=== PATIENT | male | born 1975 | race Two or more races ===

== ENCOUNTER 2022-07-16 22:45 | Emergency (ER) | payer OTHER ==
[~2022-07-16] VITALS: Ht 172.7 cm; Wt 102.0 kg
[2022-07-16] MEDS ORDERED: OMEP20 PO (23:15)
[2022-07-16] MEDS ORDERED: PB/HYOSCY/ATR/SCOP/LIDO/MAALOX 55 ML BOTTLE PO ONE (23:30)
[2022-07-16 23:44] LABS: BASOPHILS % (AUTO) 0.9 % (0.0-2.0); EOSINOPHILS % (AUTO) 4.7 % (1.0-6.0); HEMOGLOBIN 12.8 g/dL (13.5-17.5); LYMPHOCYTES # (AUTO) 2.1 K/uL (1.0-4.8); LYMPHOCYTES % (AUTO) 29.5 % (22.0-44.0); MEAN CORPUSCULAR HEMOGLOBIN 24.7 pg (26.0-34.0); MEAN CORPUSCULAR HGB CONC 32.7 G/dL (31.0-37.0); MEAN CORPUSCULAR VOLUME 76 fL (80-100); MONOCYTES # (AUTO) 0.5 K/uL (0.1-1.0); NEUTROPHILS # (AUTO) 4.1 K/uL (1.8-7.7); NEUTROPHILS % (AUTO) 57.9 % (40.0-70.0); PLATELET COUNT (AUTO) 174 K/uL (150-450); RED BLOOD CELL COUNT(AUTO) 5.17 MIL/uL (4.50-5.90); RED CELL DISTRIBUTION WIDTH 15.1 % (11.5-14.5)
[2022-07-16 23:55] LABS: ANION GAP 8 mmol/L (8-16); CALCIUM, TOTAL 8.9 mg/dL (8.8-10.5); CARBON DIOXIDE 27 mmol/L (22-29); CHLORIDE 103 mmol/L (98-107); CREATININE 0.96 mg/dL (0.60-1.30); GLOMERULAR FILTR. RATE CALC > 60 mL/min (>60); GLUCOSE,RANDOM 110 mg/dL (70-110); POTASSIUM 4.2 mmol/L (3.5-5.1); SODIUM SERUM 138 mmol/L (136-145)
[2022-07-17 00:04] LABS: B-TYPE NATRIURETIC PEPTIDE 28 pg/mL (0-100)
[2022-07-17 00:19] LABS: ALANINE AMINOTRANSFERASE 56 U/L (12-78); ALBUMIN 3.9 g/dL (3.4-5.0); ALKALINE PHOSPHATASE 97 U/L (46-116); ASPARTATE AMINOTRANSFERASE 57 U/L (15-37); BILIRUBIN,TOTAL 0.2 mg/dL (0.1-1.0); CREATINE KINASE, TOTAL ONLY 82 U/L (39-308); TOTAL PROTEIN, SERUM 7.5 g/dL (6.4-8.2)
[2022-07-17 01:00] VITALS: BP 134/92
== END 2022-07-17 01:00 | disposition home or self-care (01) ==
LOC: EMS 22:47
DX: R10.13 Epigastric pain (principal); K21.9 Gastro-esophageal reflux disease without esophagitis
CPT/HCPCS: 71045; 80053; 82550; 83880; 84484; 85025; 93005; 99285; 36415-L1; 36415-TC

== ENCOUNTER 2022-07-19 21:39 | Inpatient (IN) | payer OTHER ==
[~2022-07-19] VITALS: Ht 175.3 cm; Wt 100.7 kg
[~2022-07-19 21:39] MED LIST: OMEP20 PO
[2022-07-19 23:18] LABS: BASOPHILS % (AUTO) 0.4 % (0.0-2.0); EOSINOPHILS % (AUTO) 2.3 % (1.0-6.0); HEMOGLOBIN 13.5 g/dL (13.5-17.5); LYMPHOCYTES # (AUTO) 1.3 K/uL (1.0-4.8); LYMPHOCYTES % (AUTO) 14.3 % (22.0-44.0); MEAN CORPUSCULAR HEMOGLOBIN 24.7 pg (26.0-34.0); MEAN CORPUSCULAR HGB CONC 32.9 G/dL (31.0-37.0); MEAN CORPUSCULAR VOLUME 75 fL (80-100); MONOCYTES # (AUTO) 0.5 K/uL (0.1-1.0); MONOCYTES % (AUTO) 5.4 % (2.0-9.0); NEUTROPHILS # (AUTO) 7.2 K/uL (1.8-7.7); NEUTROPHILS % (AUTO) 77.6 % (40.0-70.0); PLATELET COUNT (AUTO) 177 K/uL (150-450); RED BLOOD CELL COUNT(AUTO) 5.48 MIL/uL (4.50-5.90); RED CELL DISTRIBUTION WIDTH 15.3 % (11.5-14.5)
[2022-07-19 23:27] LABS: ANION GAP 9 mmol/L (8-16); CARBON DIOXIDE 30 mmol/L (22-29); CHLORIDE 103 mmol/L (98-107); CREATININE 1.02 mg/dL (0.60-1.30); GLOMERULAR FILTR. RATE CALC > 60 mL/min (>60); GLUCOSE,RANDOM 125 mg/dL (70-110); SODIUM SERUM 142 mmol/L (136-145)
[2022-07-19 23:31] LABS: PROTHROMBIN TIME 10.5 SEC (9.4-11.6)
[2022-07-19 23:36] LABS: B-TYPE NATRIURETIC PEPTIDE 15 pg/mL (0-100)
[2022-07-19 23:38] LABS: ALANINE AMINOTRANSFERASE 205 U/L (12-78); ALBUMIN 4.1 g/dL (3.4-5.0); ALKALINE PHOSPHATASE 120 U/L (46-116); ASPARTATE AMINOTRANSFERASE 322 U/L (15-37); BILIRUBIN,TOTAL 0.8 mg/dL (0.1-1.0); CREATINE KINASE, TOTAL ONLY 92 U/L (39-308); TOTAL PROTEIN, SERUM 7.8 g/dL (6.4-8.2)
[2022-07-19 23:46] LABS: APPEARANCE,URINE HAZY (CLEAR); BILIRUBIN,URINE NEGATIVE (NEGATIVE); GLUCOSE, URINE (UA) NEGATIVE (NEGATIVE); KETONES,URINE NEGATIVE (NEGATIVE); LEUKOCYTE ESTERASE ,URINE NEGATIVE (NEGATIVE); NITRATE,URINE NEGATIVE (NEGATIVE); OCCULT BLOOD,URINE NEGATIVE (NEGATIVE); PH,URINE 7.5 (5.0-8.0); PROTEIN,URINE NEGATIVE (NEGATIVE); SPECIFIC GRAVITIY, URINE 1.011 (1.003-1.030); UROBILINOGEN,URINE <=1.0 mg/dL (<=1.0)
[2022-07-20 01:55] VITALS: BP 139/95
[2022-07-20] MEDS ORDERED: ONDANSETRON HCL 4 MG/2 ML VIAL IVP PRN (02:15)
[2022-07-20] MEDS ORDERED: RINGERS SOLUTION,LACTATED 1,000 ML IV SCH (02:15)
[2022-07-20 04:33] VITALS: BP 132/79
[2022-07-20 07:30] VITALS: BP 130/84
[2022-07-20] MEDS: DOCUSATE SODIUM 100 MG CAPSULE PO SCH ×2 (08:14→20:53)
[2022-07-20] MEDS ORDERED: RINGERS SOLUTION,LACTATED 1,000 ML IV ONE (12:42)
[2022-07-20] MEDS ORDERED: BUPIVACAINE 0.25%/EPI 1:200,000/PF 10 ML VIAL ONE (13:01)
[2022-07-20] MEDS ORDERED: SODIUM CL IRRIG SOLN BAG 3,000 ML IRRIG ONE (13:01)
[2022-07-20] MEDS ORDERED: IOHEXOL 240 MG/ML 20 ML VIAL ONE ×2 (13:01)
[2022-07-20] MEDS ORDERED: ETHYL ALCOHOL 62% ANTISEPTIC NASAL SANITIZER 0.6 ML AMPUL NASAL ONE (13:45)
[2022-07-20] MEDS ORDERED: HYDROmorphone HCL 2 MG/ML SYRINGE IVP PRN (15:30)
[2022-07-20] MEDS ORDERED: FentaNYL CITRATE PF 100 MCG/2 ML VIAL IVP PRN (15:30)
[2022-07-20] MEDS ORDERED: MEPERIDINE-PF 25 MG/ML VIAL IVP PRN (15:30)
[2022-07-20] MEDS: ACETAMINOPHEN 500 MG TABLET PO SCH ×2 (16:08→20:54)
[2022-07-20] MEDS: RINGERS SOLUTION,LACTATED 1,000 ML IV SCH (16:10)
[2022-07-20 16:16] VITALS: BP 132/87
[2022-07-20] MEDS: KETOROLAC TROMETHAMINE 15 MG/ML VIAL IVP PRN (18:58)
[2022-07-20 19:30] VITALS: BP 143/92
[2022-07-20] MEDS: OXYGEN THERAPY IH SCH (20:00)
[2022-07-20] MEDS: OxyCODONE HCL 5 MG IR TABLET PO PRN (20:54)
[2022-07-21] MEDS: KETOROLAC TROMETHAMINE 15 MG/ML VIAL IVP PRN (03:44)
[2022-07-21 04:00] VITALS: BP 133/90
[2022-07-21] MEDS: OxyCODONE HCL 5 MG IR TABLET PO PRN (06:02)
[2022-07-21] MEDS ORDERED: KETOROLAC TROMETHAMINE 60 MG/2 ML VIAL IM ONE (07:07)
[2022-07-21] MEDS ORDERED: DEXAMETHASONE SOD PHOS 4 MG/ML VIAL IVP ONE (07:07)
[2022-07-21] MEDS ORDERED: FentaNYL CITRATE PF 100 MCG/2 ML VIAL IVP ONE (07:07)
[2022-07-21] MEDS ORDERED: METOPROLOL TARTRATE 5 MG/5 ML VIAL IVP ONE (07:07)
[2022-07-21] MEDS ORDERED: 0.9% SODIUM CHLORIDE 10 ML VIAL IVP ONE (07:07)
[2022-07-21] MEDS ORDERED: PROPOFOL 1% 20 ML VIAL IVP ONE (07:07)
[2022-07-21] MEDS ORDERED: ONDANSETRON HCL 4 MG/2 ML VIAL IVP ONE (07:07)
[2022-07-21] MEDS ORDERED: MIDAZOLAM HCL 2 MG/2 ML VIAL IVP ONE (07:07)
[2022-07-21] MEDS ORDERED: ROCURONIUM BROMIDE 10 MG/ML 5 ML VIAL IVP ONE (07:07)
[2022-07-21] MEDS ORDERED: LIDOCAINE/PF 2% 5 ML VIAL IM ONE (07:07)
[2022-07-21 08:00] VITALS: BP 124/80
[2022-07-21] MEDS ORDERED: HEPARIN SODIUM,PORCINE 5,000 UNITS/ML VIAL SQ SCH (08:00)
[2022-07-21] MEDS: OMEPRAZOLE 20 MG CAPSULE PO SCH (08:06)
[2022-07-21] MEDS: DOCUSATE SODIUM 100 MG CAPSULE PO SCH ×2 (08:06→21:43)
[2022-07-21] MEDS: ACETAMINOPHEN 500 MG TABLET PO SCH ×3 (08:06→21:43)
[2022-07-21 08:30] VITALS: BP 124/80
[2022-07-21] MEDS: RINGERS SOLUTION,LACTATED 1,000 ML IV SCH (09:30)
[2022-07-21] MEDS ORDERED: RINGERS SOLUTION,LACTATED 1,000 ML IV ONE ×2 (14:14→14:20)
[2022-07-21] MEDS ORDERED: IOTHALAMATE MEGLUMINE 600 MG/ML 50 ML VIAL IVP ONE ×2 (14:14→14:15)
[2022-07-21] MEDS ORDERED: SUGAMMADEX SODIUM 200 MG/2 ML VIAL IVP ONE (15:27)
[2022-07-21] MEDS: OXYGEN THERAPY IH SCH (20:00)
[2022-07-21 20:32] VITALS: BP 115/77
[2022-07-22 04:51] VITALS: BP 112/63
[2022-07-22] MEDS ORDERED: 0.9% SODIUM CHLORIDE 10 ML VIAL IVP ONE (06:04)
[2022-07-22] MEDS ORDERED: FentaNYL CITRATE PF 100 MCG/2 ML VIAL IVP ONE (06:04)
[2022-07-22] MEDS ORDERED: LIDOCAINE/PF 2% 5 ML VIAL IM ONE (06:04)
[2022-07-22] MEDS ORDERED: ROCURONIUM BROMIDE 10 MG/ML 5 ML VIAL IVP ONE (06:04)
[2022-07-22] MEDS ORDERED: PROPOFOL 1% 20 ML VIAL IVP ONE (06:04)
[2022-07-22] MEDS ORDERED: DEXAMETHASONE SOD PHOS 4 MG/ML VIAL IVP ONE (06:04)
[2022-07-22] MEDS ORDERED: ONDANSETRON HCL 4 MG/2 ML VIAL IVP ONE (06:04)
[2022-07-22] MEDS ORDERED: MIDAZOLAM HCL 2 MG/2 ML VIAL IVP ONE (06:04)
[2022-07-22 07:54] VITALS: BP 114/75
[2022-07-22] MEDS: OMEPRAZOLE 20 MG CAPSULE PO SCH (07:57)
[2022-07-22] MEDS: ACETAMINOPHEN 500 MG TABLET PO SCH ×2 (07:57→16:03)
[2022-07-22] MEDS: DOCUSATE SODIUM 100 MG CAPSULE PO SCH (07:57)
[2022-07-22] MEDS: OXYGEN THERAPY IH SCH (08:00)
[2022-07-22] MEDS: RINGERS SOLUTION,LACTATED 1,000 ML IV SCH (09:30)
[2022-07-22] MEDS ORDERED: ONDA-104 PO ×2 (13:53→13:54)
[2022-07-22 14:51] LABS: ANION GAP 10 mmol/L (8-16); CALCIUM, TOTAL 8.5 mg/dL (8.8-10.5); CARBON DIOXIDE 29 mmol/L (22-29); CHLORIDE 103 mmol/L (98-107); CREATININE 1.05 mg/dL (0.60-1.30); GLOMERULAR FILTR. RATE CALC > 60 mL/min (>60); GLUCOSE,RANDOM 117 mg/dL (70-110); SODIUM SERUM 142 mmol/L (136-145)
[2022-07-22 15:11] LABS: ALANINE AMINOTRANSFERASE 131 U/L (12-78); ALBUMIN 3.5 g/dL (3.4-5.0); ALKALINE PHOSPHATASE 86 U/L (46-116); ASPARTATE AMINOTRANSFERASE 24 U/L (15-37); BILIRUBIN,TOTAL 0.3 mg/dL (0.1-1.0); TOTAL PROTEIN, SERUM 7.1 g/dL (6.4-8.2)
== END 2022-07-22 18:30 | DRG 419 ==
LOC: EMS 21:39 → 6S 07-20 00:31
PROVIDERS: ADMIT Internal Medicine; ATTEND Internal Medicine
PROC: BF101ZZ Fluoroscopy of Bile Ducts using Low Osmolar Contrast (ICD-10-PCS; 2022-07-20)
PROC: 0FT44ZZ Resection of Gallbladder, Percutaneous Endoscopic Approach (ICD-10-PCS; principal; 2022-07-20 14:00)
PROC: 0FC98ZZ Extirpation of Matter from Common Bile Duct, Via Natural or Artificial Opening Endoscopic (ICD-10-PCS; 2022-07-21)
DX: K80.66 Calculus of gallbladder and bile duct with acute and chronic cholecystitis without obstruction (principal); K21.9 Gastro-esophageal reflux disease without esophagitis; E66.9 Obesity, unspecified; R74.01 Elevation of levels of liver transaminase levels; Z68.32 Body mass index [BMI] 32.0-32.9, adult; Z79.899 Other long term (current) drug therapy
CPT/HCPCS: 71045; 76700; 80053; 81003; 82550; 83880; 84484; 85025; 85610; 85730; 88304; 93005; 99285; G0238; J0690; J1100; J1885; J2250; J2405; J2704; J3010; J3490; J7120; Q9961; Q9966; Q9967; 36415-L1; 36415-TC; Z7610